=== PATIENT | female | born 1965 | race Caucasian/White ===

== ENCOUNTER → 2016-11-25 | Outpatient (CLI) | payer MEDICARE ==
[~2016-11-25] MED LIST: ATOR10TA84 PO; FLUV50 PO; GABA-531 PO; QUET25TA PO
== END | disposition home or self-care (01) ==
LOC: RADPV 09:07
PROVIDERS: ATTEND Physician Assistant
DX: R10.11 Right upper quadrant pain (principal); Z90.49 Acquired absence of other specified parts of digestive tract
CPT/HCPCS: 76700

== ENCOUNTER → 2017-07-20 | Outpatient (CLI) | payer MEDICARE ==
[2017-07-20 16:28] LABS: HEMOGLOBIN A1C 5.5 % (4.5-6.2)
== END | disposition home or self-care (01) ==
LOC: LABMN 15:50
PROVIDERS: ATTEND Psychiatry & Neurology Psychiatry
DX: F33.1 Major depressive disorder, recurrent, moderate (principal); R79.89 Other specified abnormal findings of blood chemistry
CPT/HCPCS: 83036

== ENCOUNTER 2023-08-11 10:06 | Emergency (ER) | payer MEDICARE, SELFPAY ==
[~2023-08-11] VITALS: Ht 154.9 cm; Wt 61.4 kg
[~2023-08-11 10:06] MED LIST changes: +ATOR10TA PO; -ATOR10TA84 PO; +GABA-1181 PO; -GABA-531 PO
[2023-08-11 10:12] VITALS: TEMP 97.7
[2023-08-11] MEDS: PB/HYOSCY/ATR/SCOP/LIDO/MAALOX 55 ML BOTTLE PO ONE (13:09)
[2023-08-11 14:57] VITALS: BP 139/80; PULSE 92; RESP 20
== END 2023-08-11 15:01 | disposition home or self-care (01) ==
LOC: EMS 10:06
DX: T18.108A Unspecified foreign body in esophagus causing other injury, initial encounter (principal); F41.9 Anxiety disorder, unspecified; F32.A Depression, unspecified; W44.9XXA Unspecified foreign body entering into or through a natural orifice, initial encounter; Y93.89 Activity, other specified; Y92.89 Other specified places as the place of occurrence of the external cause; Y99.8 Other external cause status
CPT/HCPCS: 70360; 99283